=== PATIENT | female | born 1950 | race American Indian/Alaskan Native ===

== ENCOUNTER → 2021-02-09 09:05 | Outpatient (BNVA) | payer MEDICARE, OTHER, SELFPAY | PROVIDERS: PCP Internal Medicine; Visit Provider Urology | DX: R33.9 Retention of urine, unspecified (principal); N39.0 Urinary tract infection, site not specified | CPT/HCPCS: 99212 ==

== ENCOUNTER → 2022-02-16 09:29 | Outpatient (BNVA) | payer MEDICARE, OTHER, SELFPAY | PROVIDERS: PCP Internal Medicine; Visit Provider Urology | DX: R33.9 Retention of urine, unspecified (principal); Z87.440 Personal history of urinary (tract) infections | CPT/HCPCS: 51798; 99212 ==

== ENCOUNTER 2023-04-03 10:42 | Outpatient (AMB) | payer MEDICARE, OTHER, SELFPAY ==
--- NOTE | 2023-04-03 10:49 | A.OFFVIS_ITS ---
Intake Intake Visit Reasons: 1Y PVR Intake Note: Patient is present for PVR/ Urology Med: Estradiol Antibiotic Allergy: Penicillin, Neomycin, Blood Thinner: None PVR: 0ml Allergies benzalkonium chloride [Merthiolate (benzalkonium)] Allergy (Unknown, Verified 04/03/23 10:52) Unknown codeine Allergy (Unknown, Verified 04/03/23 10:52) Unknown neomycin Allergy (Unknown, Verified 04/03/23 10:52) Unknown penicillin V Allergy (Unknown, Verified 04/03/23 10:52) Unknown povidone-iodine [Betadine] Allergy (Unknown, Verified 04/03/23 10:52) Unknown soap [Betadine] Allergy (Unknown, Verified 04/03/23 10:52) Unknown colbalt sulfate Allergy (Unknown, Uncoded 04/03/23 10:52) Unknown Propylparaben Allergy (Unknown, Uncoded 04/03/23 10:52) Unknown Sorbitol Allergy (Unknown, Uncoded 04/03/23 10:52) Unknown HPI HPI Comments History of Present Illness Details Ms Jimenes is a very pleasant female. She is a patient of Dr Sanchez. She is seen for the following urologic conditions. -Followup for recurrent UTI. Urinary Tract Infection: Doing very well for past year No recurrence of UTI Continues to use estradiol with cranberry capsules Recommended to avoid cranberry juice Prescription provided They present for followup evaluation for, recurrent UTI's -Had seen Dr. Donavan Koo at [facility] for a number of years last visit was 2015. -Using estrogen cream twice a week. No UTIs since last visit.. Therapy has included symptomatic use of antibiotics, topical estrogen. Recent labs included a urinalysis, showing no infection. Recent testing included 2016 an ultrasound - , showing incomplete emptying 11/24 , an ultrasound, showing incomplete emptying, showing an atonic bladder. Relevant medical history diabetes No constipation Yes miralax daily - discussed lactulose incomplete bladder emptying Yes access to antibiotics and will administer them along with acidophilius. Therapeutic plan will include topical estrogen, 6 x 8 oz water per day. [facility] Medical History Atrophic vulva Chronic idiopathic constipation GERD (gastroesophageal reflux disease) Incomplete emptying of bladder UTI (urinary tract infection) Surgical History History of surgery Review of Systems Const Denies chills and Denies fever(s) Card Reports no additional complaints and Denies syncope Resp Denies cough GI Denies abdominal pain and Denies heartburn Reports as per HPI and Denies change in libido Neuro Denies syncope Psych Denies change in libido Endo Denies change in libido Physical Exam Const General: cooperative, healthy appearing, comfortable and no acute distress Orientation/consciousness: patient oriented x3 HEENT Face and sinus: Yes normal facial exam Mouth: moist mucous membranes Neck Neck: Yes normal visual inspection, Yes full ROM and Yes trachea midline Chest Chest palpation & inspection: normal inspection of the chest Resp Effort & Inspection: normal respiratory effort, able to speak in complete sentences and no respiratory distress GI Inspection: Yes normal to inspection Back/Spine/Pelvis Cervical Spine: normal cervical lordosis Thoracic/Lumbar Spine: thoracic and lumbar spine normal to inspection Skin General skin exam: no rashes or lesions noted Neuro General: patient oriented x3, gait normal, tone normal and moves all extremities Extrem General: Yes normal to inspection and Yes capillary refill normal Office Procedures Post Void Residual Post Residual Void Post Void Residual (PVR): 0 [id number] Void Residual by ultrasound Results AMB Urinalysis, Automated UA Leukoctes 500 Sarah/uL Last Edit by ALEXANDER Sullivan on 04/03/23 11:03 UA Nitrite Negative Last Edit by ALEXANDER Sullivan on 04/03/23 11:03 UA Urobilinogen 0.2 mg/dL Last Edit by ALEXANDER Sullivan on 04/03/23 11:0 3 UA Protein 0 mg/dL Last Edit by ALEXANDER Sullivan on 04/03/23 11:03 UA pH 6.0 Last Edit by ALEXANDER Sullivan on 04/03/23 11:03 UA Blood 0 Bryon/uL Last Edit by ALEXANDER Sullivan on 04/03/23 11:03 UA Specific [place] 1.015 Last Edit by ALEXANDER Sullivan on 04/03/23 11: 03 UA Ketone Negative Last Edit by ALEXANDER Sullivan on 04/03/23 11:03 UA Bilirubin 0 mg/dL Last Edit by ALEXANDER Sullivan on 04/03/23 11:03 UA Glucose 0 mg/dL Last Edit by ALEXANDER Sullivan on 04/03/23 11:03 Results Reviewed Results Reviewed: Laboratory Last Values Urine pH (Auto) 6.0 04/03/23 11:02 Specific [place] (Auto) 1.015 04/03/23 11:02 Urine Protein (Auto) 0 mg/dL 04/03/23 11:02 Glucose (UA)(Auto) 0 mg/dL 04/03/23 11:02 Urine Ketones (Auto) Negative 04/03/23 11:02 Urine Blood (Auto) 0 Bryon/uL 04/03/23 11:02 Urine Nitrite (Auto) Negative 04/03/23 11:02 Urine Bilirubin (Auto) 0 mg/dL 04/03/23 11:02 Urine Urobilinogen (Auto) 0.2 mg/dL 04/03/23 11:02 Leukocyte Esterase (Auto) 500 Sarah/uL 04/03/23 11:02 Assessment & Plan Assessment & Plan (1) Incomplete emptying of bladder: Code(s): R33.9 - Retention of urine, unspecified (2) UTI (urinary tract infection): Code(s): N39.0 - Urinary tract infection, site not specified Plan Continue yearly surveillance Orders: Orders AMB Post Void Residual by ultrasound 04/03/23 R33.9 - Retention of urine, unspecified AMB Urinalysis Automated 04/03/23 Z13.9 - Encounter for screening, unspecified Patient Instructions: Imaging studies, laboratory and physical exam results were discussed and reviewed in detail. No major barriers to patient understanding were identified. An opportunity to ask questions regarding the treatment plan was provided. All questions were answered. The patient expressed understanding and agreement with the above treatment plan. The patient is aware they should contact our office by phone for worsening of their current condition or the appearance of new urologic symptoms. Compliance is encouraged with any medications and followup testing that is ordered. It is a privilege to participate in the urologic care of your patient. If you have any questions or concerns regarding treatment for the above conditions, or other urologic issues, please do not hesitate to contact me. The office telephone contact is [phone]. This note is constructed using voice recognition software. While every effort has been made to ensure accuracy wool hat forming machine tender errors may have been included. Yours sincerely, Dr Rojas Agustin MD, [facility] - Urology Providers of Expert, Compassionate Care for the Genitourinary System Coding Level of Care Code Est Pt Level 4 (31632) Diagnoses Incomplete emptying of bladder R33.9 UTI (urinary tract infection) N39.0 CPT Codes Post Residual Void - PVR CPT Code: 61987-[id number] Void Residual by ultrasound ([id number])
== END 2023-04-03 11:44 | disposition home or self-care (01) ==
PROVIDERS: Visit Provider Urology
DX: R33.9 Retention of urine, unspecified (principal); N39.0 Urinary tract infection, site not specified
CPT/HCPCS: 99214

== ENCOUNTER → 2023-04-03 10:42 | Outpatient (BNVA) | payer MEDICARE, OTHER, SELFPAY | PROVIDERS: Visit Provider Urology | DX: R33.9 Retention of urine, unspecified (principal); N39.0 Urinary tract infection, site not specified | CPT/HCPCS: 51798; 99212 ==

== ENCOUNTER 2024-04-02 11:25 | Outpatient (AMB) | payer MEDICARE, OTHER, SELFPAY ==
--- NOTE | 2024-04-02 11:28 | A.OFFVIS_ITS ---
Intake Visit Reasons: 1y follow up Intake Note: Patient is present for 1y f/u Urology Med: Estradiol Antibiotic Allergy: Penicillin, Neomycin, Blood Thinner: None PVR: 0ml TODAY'S PVR: Clothing Trades Workers Required: No Allergies benzalkonium chloride [Merthiolate (benzalkonium)] Allergy (Unknown, Verified 04/02/24 11:29) Unknown codeine Allergy (Unknown, Verified 04/02/24 11:29) Unknown neomycin Allergy (Unknown, Verified 04/02/24 11:29) Unknown penicillin V Allergy (Unknown, Verified 04/02/24 11:29) Unknown povidone-iodine [Betadine] Allergy (Unknown, Verified 04/02/24 11:29) Unknown soap [Betadine] Allergy (Unknown, Verified 04/02/24 11:29) Unknown colbalt sulfate Allergy (Unknown, Uncoded 04/02/24 11:29) Unknown Propylparaben Allergy (Unknown, Uncoded 04/02/24 11:29) Unknown Sorbitol Allergy (Unknown, Uncoded 04/02/24 11:29) Unknown HPI Comments Details: Ms Jimenes is a very pleasant female. She is a patient of Dr Sanchez. She is seen for the following urologic conditions. -Followup for recurrent UTI Twelve month follow-up No recurrence Continue estradiol with cranberry capsules Discussed her recent [place] chocolate that she gets from [place] Urinary Tract Infection: Doing very well for past year No recurrence of UTI Continues to use estradiol with cranberry capsules They present for followup evaluation for, recurrent UTI's -Had seen Dr. Donavan Koo at [facility] for a number of years last visit was 2015. -Using estrogen cream twice a week. No UTIs since last visit.. Therapy has included symptomatic use of antibiotics, topical estrogen. Recent labs included a urinalysis, showing no infection. Recent testing included 2016 an ultrasound - , showing incomplete emptying 11/24 , an ultrasound, showing incomplete emptying, showing an atonic bladder. Relevant medical history diabetes No constipation Yes miralax daily - discussed lactulose incomplete bladder emptying Yes access to antibiotics and will administer them along with acidophilius. Therapeutic plan will include topical estrogen, 6 x 8 oz water per day. [facility] Medical History Atrophic vulva Chronic idiopathic constipation GERD (gastroesophageal reflux disease) Incomplete emptying of bladder UTI (urinary tract infection) Surgical History History of surgery Review of Systems Const Denies chills and Denies fever(s) Card Reports no additional complaints and Denies syncope Resp Denies cough GI Denies abdominal pain and Denies heartburn Reports as per HPI and Denies change in libido Neuro Denies syncope Psych Denies change in libido Endo Denies change in libido Physical Exam Const General: cooperative, healthy appearing, comfortable and no acute distress Orientation/consciousness: patient oriented x3 HEENT Face and sinus: Yes normal facial exam Mouth: moist mucous membranes Neck Neck: Yes normal visual inspection, Yes full ROM and Yes trachea midline Chest Chest palpation & inspection: normal inspection of the chest Resp Effort & Inspection: normal respiratory effort, able to speak in complete sentences and no respiratory distress GI Inspection: Yes normal to inspection Back/Spine/Pelvis Cervical Spine: normal cervical lordosis Thoracic/Lumbar Spine: thoracic and lumbar spine normal to inspection Skin General skin exam: no rashes or lesions noted Neuro General: patient oriented x3, gait normal, tone normal and moves all extremities Extrem General: Yes normal to inspection and Yes capillary refill normal Results AMB Urinalysis, Automated UA Leukoctes 15 Sarah/uL Last Edit by BEV Marie on 04/02/24 11:43 UA Nitrite Negative Last Edit by BEV Marie on 04/02/24 11:43 UA Urobilinogen 0.2 mg/dL Last Edit by BEV Marie on 04/02/24 11:4 3 UA Protein 0 mg/dL Last Edit by BEV Marie on 04/02/24 11:43 UA pH 6.5 Last Edit by BEV Marie on 04/02/24 11:43 UA Blood 0 Bryon/uL Last Edit by BEV Marie on 04/02/24 11:43 UA Specific [place] 1.010 Last Edit by BEV Marie on 04/02/24 11: 43 UA Ketone Negative Last Edit by BEV Marie on 04/02/24 11:43 UA Bilirubin 0 mg/dL Last Edit by BEV Marie on 04/02/24 11:43 UA Glucose 0 mg/dL Last Edit by BEV Marie on 04/02/24 11:43 Assessment & Plan Assessment & Plan (1) Incomplete emptying of bladder: Code(s): R33.9 - Retention of urine, unspecified Category: Medical (2) UTI (urinary tract infection): Code(s): N39.0 - Urinary tract infection, site not specified Category: Medical Plan Refill estradiol Twelve month follow-up Orders: Orders AMB Urinalysis Automated Today Z13.9 - Encounter for screening, unspecified Medications: Refilled estradiol 0.01%(0.1mg/gram) pea-sized to urethra 2 times a week; 2 times a week; 30 days 42.5 grams 2RF N39.0 - Urinary tract infection, site not s pecified, 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 No major barriers to patient understanding were identified. An opportunity to ask questions regarding the treatment plan was provided. All questions were answered. The patient expressed understanding and agreement with the above treatment plan. The patient is aware they should contact our office by phone for worsening of their current condition or the appearance of new urologic symptoms. Compliance is encouraged with any medications and followup testing that is ordered. It is a privilege to participate in the urologic care of your patient. If you have any questions or concerns regarding treatment for the above conditions, or other urologic issues, please do not hesitate to contact me. The office telephone contact is [phone]. This note is constructed using voice recognition software. While every effort has been made to ensure accuracy repair department supervisor errors may have been included. Yours sincerely, Dr Rojas Agustin MD, [facility] - Urology Providers of Expert, Compassionate Care for the Genitourinary System Coding Level of Care Code Est Pt Level 4 (99969) Complex EM visit Add On G2211 Diagnoses Incomplete emptying of bladder R33.9 UTI (urinary tract infection) N39.0
== END 2024-04-02 12:01 | disposition home or self-care (01) ==
PROVIDERS: PCP Internal Medicine; Visit Provider Urology
DX: R33.9 Retention of urine, unspecified (principal); N39.0 Urinary tract infection, site not specified; Z13.9 Encounter for screening, unspecified
CPT/HCPCS: 99214; G2211

== ENCOUNTER → 2024-04-02 11:25 | Outpatient (BNVA) | payer MEDICARE, OTHER, SELFPAY | PROVIDERS: PCP Internal Medicine; Visit Provider Urology | DX: N39.0 Urinary tract infection, site not specified (principal); R33.9 Retention of urine, unspecified | CPT/HCPCS: 81003; 99212 ==

== ENCOUNTER 2025-06-16 11:16 | Outpatient (AMB) | payer MEDICARE, OTHER, SELFPAY ==
--- NOTE | 2025-06-16 11:13 | A.OFFVIS_ITS ---
Intake Visit Reasons: follow up Intake Note: Patient is present for follow up Urology Med: Estradiol Antibiotic Allergy: Penicillin, Neomycin, Blood Thinner: None TODAY'S PVR:407 mls Sander And Buffer Required: No Accompanied by: Self / Same As Patient Allergies benzalkonium chloride (Merthiolate (benzalkonium)) Allergy (Unknown, Verified 06/16/25 11:13) Unknown codeine Allergy (Unknown, Verified 06/16/25 11:13) Unknown neomycin Allergy (Unknown, Verified 06/16/25 11:13) Unknown penicillin V Allergy (Unknown, Verified 06/16/25 11:13) Unknown povidone-iodine (Betadine) Allergy (Unknown, Verified 06/16/25 11:13) Unknown soap (Betadine) Allergy (Unknown, Verified 06/16/25 11:13) Unknown colbalt sulfate Allergy (Unknown, Uncoded 04/02/24 11:29) Unknown Propylparaben Allergy (Unknown, Uncoded 04/02/24 11:29) Unknown Sorbitol Allergy (Unknown, Uncoded 04/02/24 11:29) Unknown HPI Comments Details: Ms Jimenes is a very pleasant female. She is a patient of Dr Sanchez. She is seen for the following urologic conditions. -Followup for recurrent UTI Twelve month follow-up No recurrence Continue estradiol with cranberry capsules PVR high Did not try to empty today Positive leukocytes and positive nitrites Will culture Re prescribed estradiol Urinary Tract Infection: Doing very well for past year No recurrence of UTI Continues to use estradiol with cranberry capsules They present for followup evaluation for, recurrent UTI's -Had seen Dr. Donavan Koo at [facility] for a number of years last visit was 2015. -Using estrogen cream twice a week. No UTIs since last visit.. Therapy has included symptomatic use of antibiotics, topical estrogen. Recent labs included a urinalysis, showing no infection. Recent testing included 2016 an ultrasound - , showing incomplete emptying 11/24 , an ultrasound, showing incomplete emptying, showing an atonic bladder. Relevant medical history diabetes No constipation Yes miralax daily - discussed lactulose incomplete bladder emptying Yes access to antibiotics and will administer them along with acidophilius. Therapeutic plan will include topical estrogen, 6 x 8 oz water per day. [facility] Medical History Atrophic vulva Chronic idiopathic constipation GERD (gastroesophageal reflux disease) Incomplete emptying of bladder UTI (urinary tract infection) Surgical History History of surgery Review of Systems Const Denies chills and Denies fever(s) Card Reports no additional complaints and Denies syncope Resp Denies cough GI Denies abdominal pain and Denies heartburn Reports as per HPI and Denies change in libido Neuro Denies syncope Psych Denies change in libido Endo Denies change in libido Physical Exam Const General: cooperative, healthy appearing, comfortable and no acute distress Orientation/consciousness: patient oriented x3 HEENT Face and sinus: Yes normal facial exam Mouth: moist mucous membranes Neck Neck: Yes normal visual inspection, Yes full ROM and Yes trachea midline Chest Chest palpation & inspection: normal inspection of the chest Resp Effort & Inspection: normal respiratory effort, able to speak in complete sentences and no respiratory distress GI Inspection: Yes normal to inspection Back/Spine/Pelvis Cervical Spine: normal cervical lordosis Thoracic/Lumbar Spine: thoracic and lumbar spine normal to inspection Skin General skin exam: no rashes or lesions noted Neuro General: patient oriented x3, gait normal, tone normal and moves all extremities Extrem General: Yes normal to inspection and Yes capillary refill normal Assessment & Plan Assessment & Plan (1) UTI (urinary tract infection): Code(s): N39.0 - Urinary tract infection, site not specified Category: Medical (2) Incomplete emptying of bladder: Code(s): R33.9 - Retention of urine, unspecified Category: Medical Plan Twelve month follow-up Medications: Refilled estradiol 0.01%(0.1mg/gram) pea-sized to urethra 2 times a week; 2 times a week; 42.5 grams 2RF 30 days N39.0 - Urinary tract infection, site not specified, 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 While every effort has been made to ensure accuracy full fashioned garment knitter errors may have been included. Imaging studies, laboratory and physical exam results were discussed and reviewed in detail. No major barriers to patient understanding were identified. An opportunity to ask questions regarding the treatment plan was provided. All questions were answered. The patient expressed understanding and agreement with the above treatment plan. The patient is aware they should contact our office by phone for worsening of their current condition or the appearance of new urologic symptoms. Compliance is encouraged with any medications and followup testing that is ordered. It is a privilege to participate in the urologic care of your patient. If you have any questions or concerns regarding treatment for the above conditions, or other urologic issues, please do not hesitate to contact me. The office telephone contact is [phone]. Sincerely, Dr Rojas Agustin MD, [facility] - Urology Compassionate Specialist Care for the Genitourinary System Coding Level of Care Code Est Pt Level 4 (38640) Diagnoses UTI (urinary tract infection) N39.0 Incomplete emptying of bladder R33.9
== END 2025-06-16 12:15 | disposition home or self-care (01) ==
LOC: HO.HUSH 11:16
PROVIDERS: PCP Internal Medicine; Visit Provider Urology
DX: N39.0 Urinary tract infection, site not specified (principal); R33.9 Retention of urine, unspecified; Z13.9 Encounter for screening, unspecified
CPT/HCPCS: 99214

== ENCOUNTER 2025-06-16 11:16 | Outpatient (REF) | payer MEDICARE, OTHER, SELFPAY | END 2025-06-16 11:17 | disposition home or self-care (01) | LOC: HO.LAB 11:16 | PROVIDERS: PCP Internal Medicine; Visit Provider Urology | DX: N39.0 Urinary tract infection, site not specified (principal); N95.2 Postmenopausal atrophic vaginitis; R33.9 Retention of urine, unspecified | CPT/HCPCS: 51798; 81003; 87086; 87088; 87186; 99212 ==